=== PATIENT | male | born 1965 | race African-American/Black ===

== ENCOUNTER 2023-12-16 19:21 | Emergency (ER) | payer MEDICARE, MEDICAID ==
[~2023-12-16] VITALS: Ht 177.8 cm; Wt 90.0 kg
[~2023-12-16 19:21] MED LIST: IBUP-2029 MT; T3 PO
[2023-12-16 19:39] VITALS: RESP 24; O2SAT 100
[2023-12-16 20:57] VITALS: TEMP 36.94740
[2023-12-17 05:00] VITALS: BP 164/72; PULSE 69; O2SAT 96
== END 2023-12-17 10:44 | disposition home or self-care (01) ==
LOC: ER 19:21 → CANBEDREQ 12-17 09:42 → ER 12-17 10:44
DX: S09.90XA Unspecified injury of head, initial encounter (principal); W18.39XA Other fall on same level, initial encounter; Y93.89 Activity, other specified; Y92.89 Other specified places as the place of occurrence of the external cause; Y99.8 Other external cause status
CPT/HCPCS: 99285